=== PATIENT | female | born 1950 | race African-American/Black ===

== ENCOUNTER 2019-04-22 06:15 | Day surgery (SDC) | payer MEDICARE, OTHER ==
--- NOTE | 2019-04-21 13:00 | Opthalmology H&P ---
Ophthalmology H&P H&P Chief Complaint: decreased vision in right eye HPI Vision Affects Ability to: read, focus/use eyes together, manage personal affairs HPI Narrative Blurry vision right eye Exam Visual Acuity: OD 20/200 OS 20/50 Tension: OD 14 OS 12 Eye Exam: normal OU: external exam, palpebral fissure-width, marginal reflex distance, levator function, corneas, anterior chambers, fundus exam; findings: lens - cortical cataracts OU Assessment/Plan Treatment Plan: cataract extraction w/ lens implant Goals of Treatment: improvement of vision, enhance quality of life Attestation Attestation The risks and benefits of the surgery as well as alternative procedures were explained to the patient in detail. Juanito Stephen MD Apr 21, 2019 13:00
--- NOTE | 2019-04-21 13:01 | Pre-Procedure Note/Attestation ---
Pre-Procedure Note/Attestation Complete Prior to Procedure Planned Procedure: right Procedure Narrative: Cataract extraction with intraocular lens implant right eye Indications for Procedure Pre-Operative Diagnosis: cortical senile cataract right eye Attestation I attest that I discussed the nature of the procedure; its benefits; risks and complications; and alternatives (and the risks and benefits of such alternatives ), prior to the procedure, with the patient (or the patient's legal housing management representative). I attest that, if there was a reasonable possibility of needing a blood transfusion, the patient (or the patient's legal housing management representative) was given the [facility] standardized written summary, pursuant to the [place] Blood Safety Act ([place] Health and Safety Code # 1645, as amended). I attest that I re-evaluated the patient just prior to the surgery and that there has been no change in the patient's H&P, except as documented below: Juanito Stephen MD Apr 21, 2019 13:01
[~2019-04-22] VITALS: Ht 160 cm; Wt 113.4 kg
[2019-04-22] VITALS (10 sets, daily range): BP systolic 109–144; BP diastolic 55–76
[~2019-04-22 06:15] MED LIST: ASPIRIN81 MG ORAL; ATORVASTATIN CA20 MG ORAL; FLUTICASONE PRO16 G1 NASAL; HYDRALAZINE HC100 MG ORAL; LORATADINE10 M2 PO; LOSARTAN POTASS50 MG ORAL; MELOXICAM15 MG PO; METOPROLOL TART25 MG ORAL; MONTELUKAST SOD10 MG ORAL; SYMBICORT 16010.2 G1 IH; TRIAMTERENE-HC1 EAC5 ORAL
[2019-04-22] MEDS ORDERED: Midazolam 2mg/2ml Inj ONE (06:16)
[2019-04-22] MEDS ORDERED: fentaNYL 100 mcg/2 mL IV ONE (06:16)
[2019-04-22] MEDS ORDERED: Proparacaine 0.5% Opth Soln 15ml RIGHT EYE ONE (07:00)
[2019-04-22] MEDS ORDERED: Polysporin Opth Oint 3.5gm ONE (07:00)
[2019-04-22] MEDS ORDERED: Pred Forte 1% Opth Susp 1ml ONE (07:00)
[2019-04-22] MEDS ORDERED: Akten 3.5% 1ml Btl RIGHT EYE ONE (07:00)
[2019-04-22] MEDS ORDERED: Pilocarpine 1% Opth 15ml Soln ONE (07:00)
[2019-04-22] MEDS ORDERED: Tetracaine 0.5% Opth 4ml Soln RIGHT EYE ONE (07:00)
[2019-04-22] MEDS: Tobramycin Op Soln 0.3% 5ml RIGHT EYE SCH ×3 (07:10→07:21)
[2019-04-22] MEDS: Phenylephrine 10% Opth Soln 5ml RIGHT EYE SCH ×3 (07:10→07:21)
[2019-04-22] MEDS: Cyclopentolate 1% Opth Sol 2ml RIGHT EYE SCH ×3 (07:10→07:21)
[2019-04-22] MEDS: Tropicamide 1% Opth 15ml Soln RIGHT EYE SCH ×3 (07:10→07:20)
[2019-04-22] MEDS: Diclofenac Sod 0.1% Op Soln RIGHT EYE SCH ×3 (07:10→07:20)
--- NOTE | 2019-04-22 07:55 | Anethesia Preoperative Eval ---
Anesthesia Pre-op PMH/ROS General Date of Evaluation: Apr 22, 2019 Time of Evaluation: 07:53 Anesthesiologist: nancy ASA Score: ASA 3 Mallampati Score Class I : Soft palate, uvula, fauces, pillars visible Class II: Soft palate, uvula, fauces visible Class III: Soft palate, base of uvula visible Class IV: Only hard plate visible Mallampati Classification: Class II Surgeon: aric Diagnosis: cortical cataract right eye Surgical Procedure: cataract extraction w/iol implant right eye Anesthesia History: none Social History: smoking - former smoker Family History: no anesthesia problems Allergies: Coded Allergies: No Known Allergies (Unverified , 04/22/19) Medications: see eMAR Patient NPO?: Yes Past Medical History Cardiovascular: Reports: HTN, other - hypercholesterolemia Musculoskeletal/Integumentary: Reports: OA, other - bilateral hip replacement Anesthesia Pre-op Phys. Exam Physician Exam Last Vital Signs Date Time Temp Pulse Resp B/P (MAP) Pulse Ox O2 Delivery O2 Flow Rate FiO2 04/22/19 07:14 Room Air 04/22/19 07:00 97.0 65 18 126/73 97 Constitutional: NAD Neurologic: CN 2-12 intact Cardiovascular: RRR Respiratory: CTA Gastrointestinal: S/NT/ND Airway Exam Mallampati Score: Class II MO: limited Neck: short TMD: 2fb ROM: limited Anesthesia Pre-op A/P Risk Assessment & Plan Assessment: asa3 Plan: mac Status Change Before Surgery: No Pre-Antibiotics Drug: Oneyda Mariee MD Apr 22, 2019 07:55
[2019-04-22] MEDS ORDERED: Atropine Sulfate 0.4mg/ml inj IVP PRN (08:00)
[2019-04-22] MEDS ORDERED: Midazolam 2mg/2ml Inj IVP PRN (08:00)
[2019-04-22] MEDS ORDERED: fentaNYL 100 mcg/2 mL IV PRN (08:00)
[2019-04-22] MEDS ORDERED: DiphenhydrAMINE 50mg/ml Inj IVP PRN (08:00)
[2019-04-22] MEDS ORDERED: Sterile Water Irrig 1000ml IRRIG ONE (10:30)
[2019-04-22] MEDS ORDERED: LR 1000ml ONE (10:30)
[2019-04-22] MEDS ORDERED: NS Irrig 1000ml ONE (10:30)
[2019-04-22] MEDS ORDERED: EPINEPHrine 1mg/1ml Amp ONE (11:15)
[2019-04-22] MEDS ORDERED: BSS 15ml BTL ONE (11:16)
[2019-04-22] MEDS ORDERED: Povidone-Iodine 5% opth solution ONE (11:16)
[2019-04-22] MEDS ORDERED: Dexamethasone 4mg/ml vial ONE (11:16)
[2019-04-22] MEDS ORDERED: BSS 500ml btl ONE (11:16)
[2019-04-22] MEDS ORDERED: Sodium Hyaluronate 14 mg/ml 0.85ml ONE (11:16)
--- NOTE | 2019-04-22 11:35 | Immediate Post-Op Evaluation ---
Immediate Post-Op Evalulation Immediate Post-Op Evalulation Procedure: cataract extraction w/iol implant right eye Date of Evaluation: Apr 22, 2019 Time of Evaluation: 11:25 IV Fluids: 400ml lr Blood Products: none Estimated Blood Loss: negligible Blood Pressure Systolic: 114 Blood Pressure Diastolic: 55 Pulse Rate: 69 Respiratory Rate: 18 O2 Sat by Pulse Oximetry: 99 Temperature (Fahrenheit): 97.3 Pain Score (1-10): 0 Nausea: No Vomiting: No Complications none Patient Status: awake, reacts, patent Hydration Status: adequate Drug: Oneyda Mariee MD Apr 22, 2019 11:35
--- NOTE | 2019-04-22 11:36 | 48 Hour Post Anesthesia Eval ---
Post Anesthesia Evaluation Procedure: cataract extraction w/iol implant right eye Date of Evaluation: Apr 22, 2019 Time of Evaluation: 11:27 Blood Pressure Systolic: 120 0: 59 Pulse Rate: 71 Respiratory Rate: 18 Temperature (Fahrenheit): 97.3 O2 Sat by Pulse Oximetry: 99 Airway: patent Nausea: No Vomiting: No Pain Intensity: 0 Hydration Status: adequate Cardiopulmonary Status: stable Mental Status/LOC: patient returned to baseline Post-Anesthesia Complications: none Follow-up care needed: N/A Oneyda Salgado MD Apr 22, 2019 11:36
--- NOTE | 2019-04-25 11:42 | Brief Operative Note ---
Immediate Post Operative Note Operative Note Chief Complaint: Blurry vision right eye Pre-op Diagnosis: cortical senile cataract right eye Procedure: Cataract extraction with intraocular lens implant right eye Post-op Diagnosis: Pseudophakia right eye Post-op Diagnosis: same as pre-op Findings: consistent w/pre-op dx studies Surgeon: Juanito Stephen MD Anesthesiologist: Oneyda Cunningham MD Anesthesia: MAC Specimen: none Complications: none Condition: stable Fluids: LR Estimated Blood Loss: none Drains: none Implant(s) used?: Yes - IOL-OD Juanito Stephen MD Apr 25, 2019 11:42
--- NOTE | 2019-04-25 11:54 | Operative Note - PDOC ---
Operative Note Operative Note Date of Operation/Procedure: Apr 22, 2019 Chief Complaint: Blurry vision right eye Pre-op Diagnosis: cortical senile cataract right eye Procedure: Cataract extraction with intraocular lens implant right eye Post-op Diagnosis: Pseudophakia right eye Post-op Diagnosis: same as pre-op Operative Findings: consistent w/pre-op dx studies Surgeon: Juanito Stephen MD Anesthesiologist: Oneyda Cunningham MD Anesthesia: MAC Specimen: none Complications: none Condition: stable Fluids: LR Estimated Blood Loss: none Drains: none Implant(s) used?: Yes - IOL-OD+ Indications for Procedure Cortical senile cataract right eye Description of Procedure This patient has been complaining visually significant cataract in the right eye with the best corrected visual acuity of 20/200 under moderate glare conditions worse. The patient complains of difficulties with glare in performing activities of daily living and wants to manage personal affairs with comfort and accuracy and see well enough to move with safety at home and outdoors. The risks, benefits and alternatives of the procedure were discussed with the patient in the office prior to scheduling surgery. All questions from the patient were answered after the surgical procedure was explained in detail. The risks of the procedure as explained to the patient include, but are not limited to, pain, infection, bleeding, loss of vision, retinal detachment, need for further surgery, loss of lens nucleus, double vision, etc. Alternative procedures were discussed which include, to do nothing or seek a second opinion. Informed consent for this procedure was obtained from the patient. The patient was referred to a primary care physician for a cardiopulmonary clearance prior to surgery, after proper evaluation was done patient was properly scheduled for outpatient surgery. The patient was brought to the operating room where the anesthesiologist established I.V. lines and cardiac monitoring leads. Mild intravenous sedation was administered. The patient was then prepared with a 5% solution of povidone -iodine to the conjunctival fornix and lashes, and a 5% solution of povidone- iodine to the lids and periorbital skin. The patient was then draped in the usual sterile fashion. A lid speculum was then placed in the operative eye. A keratome blade was then used to create a biplanar incision into the anterior chamber. Viscoelastics was then instilled into the anterior chamber. A 3-mm single pass clear corneal incision was made just anterior to the vascular arcade of the temporal limbus using a keratome. Anterior capsulorrhexis was created. The nucleus was hydrodissected and hydrodelineated, and was freely movable in the capsular bag. The lens nucleus was then phacoemulsified. Following the deep groove formation , the lens was split bimanually and the resultant quadrants and epicortex removed under vacuum burst-mode phacoemulsification. Peripheral cortex was removed with the irrigation and aspiration handpiece. The capsular bag was expanded with viscoelastic. The implant was check for proper power and sized. The implant was inspected under the microscope and found to be free of defects. The implant was inserted into the cartridge system under viscoelastic and placed in the capsular bag. The trailing haptic was positioned with the cartridge system. Viscoelastics was removed from the anterior chamber using the irrigation and aspiration unit. The corneal wound was then tested for leaks and none were found. The lid speculum were then removed. Sponge and needle counts were correct. An eye patch and shield were placed over the operative eye. The patient was taken to the recovery room in stable condition. There were no complications. The patient tolerated the procedure well. The patient was then transferred to the ambulatory surgery unit in stable and satisfactory condition , was given detailed written instructions and asked to follow up in the office the next day. Juanito Stephen MD Apr 25, 2019 11:54
== END 2019-04-22 12:35 | disposition home or self-care (01) ==
LOC: SUR 06:15
DX: H25.011 Cortical age-related cataract, right eye (principal); Z79.82 Long term (current) use of aspirin; Z79.899 Other long term (current) drug therapy; E78.00 Pure hypercholesterolemia, unspecified; I10 Essential (primary) hypertension; M19.90 Unspecified osteoarthritis, unspecified site; Z96.643 Presence of artificial hip joint, bilateral; Z87.891 Personal history of nicotine dependence
CPT/HCPCS: 66984; J0171; J1100; J2250; J3010; V2632; 94003; 94150

== ENCOUNTER 2019-07-11 07:00 | Day surgery (SDC) | payer MEDICARE, OTHER ==
--- NOTE | 2019-06-20 15:51 | Pre-Procedure Note/Attestation ---
Pre-Procedure Note/Attestation Complete Prior to Procedure Planned Procedure: left Procedure Narrative: Cataract Extraction with intraocular lens implant left eye Indications for Procedure Pre-Operative Diagnosis: Cortical cataract Attestation I attest that I discussed the nature of the procedure; its benefits; risks and complications; and alternatives (and the risks and benefits of such alternatives ), prior to the procedure, with the patient (or the patient's legal training representative). I attest that, if there was a reasonable possibility of needing a blood transfusion, the patient (or the patient's legal training representative) was given the [facility] standardized written summary, pursuant to the Bryce Rj Blood Safety Act ([place] Health and Safety Code # 1645, as amended). I attest that I re-evaluated the patient just prior to the surgery and that there has been no change in the patient's H&P, except as documented below: Juanito Stephen MD Jun 20, 2019 15:51
--- NOTE | 2019-07-08 10:17 | Opthalmology H&P ---
Ophthalmology H&P H&P Chief Complaint: decreased vision in left eye HPI Vision Affects Ability to: read, manage personal affairs HPI Narrative Blurry Vision Exam Visual Acuity: OD 20/40 OS 20/125 Tension: OD 12 OS 12 Eye Exam: normal OU: external exam, palpebral fissure-width, marginal reflex distance, levator function, corneas, anterior chambers, lens - NS/CC Cataract OS, fundus exam; findings: lens - NS/CC Cataract OS Assessment/Plan Treatment Plan: cataract extraction w/ lens implant Goals of Treatment: improvement of vision, enhance quality of life Attestation Attestation The risks and benefits of the surgery as well as alternative procedures were explained to the patient in detail. Juanito Stephen MD Jul 08, 2019 10:17
--- NOTE | 2019-07-08 10:19 | Pre-Procedure Note/Attestation ---
Pre-Procedure Note/Attestation Complete Prior to Procedure Planned Procedure: left Procedure Narrative: Cataract extraction with intraocular lens implant left eye Indications for Procedure Pre-Operative Diagnosis: Cortical/Nuclear sclerotic cataract left eye Attestation I attest that I discussed the nature of the procedure; its benefits; risks and complications; and alternatives (and the risks and benefits of such alternatives ), prior to the procedure, with the patient (or the patient's legal territory sales representative). I attest that, if there was a reasonable possibility of needing a blood transfusion, the patient (or the patient's legal territory sales representative) was given the [facility] standardized written summary, pursuant to the [place] Blood Safety Act ([place] Health and Safety Code # 1645, as amended). I attest that I re-evaluated the patient just prior to the surgery and that there has been no change in the patient's H&P, except as documented below: Juanito Stephen MD Jul 08, 2019 10:19
[2019-07-11] VITALS (8 sets, daily range): BP systolic 116–153; BP diastolic 53–74
[~2019-07-11] VITALS: Ht 160 cm; Wt 108.9 kg
[~2019-07-11 07:00] MED LIST changes: +Akten 3.5% 1ml Btl LEFT EYE ONE; +Cyclopentolate 1% Opth Sol 2ml LEFT EYE SCH; +Diclofenac Sod 0.1% Op Soln LEFT EYE SCH; +FUROSEMIDE40 MG ORAL; +POTASSIUM CHLO10 ME3 ORAL; +Phenylephrine 10% Opth Soln 5ml LEFT EYE SCH; +Proparacaine 0.5% Opth Soln 15ml LEFT EYE ONE; +TRIAMTERENE-HC1 EAC7 ORAL; +Tetracaine 0.5% Opth 4ml Soln LEFT EYE ONE; +Tobramycin Op Soln 0.3% 5ml LEFT EYE SCH; +Tropicamide 1% Opth 15ml Soln LEFT EYE SCH
[2019-07-11] MEDS: Tropicamide 1% Opth 15ml Soln LEFT EYE SCH ×3 (09:03→09:20)
[2019-07-11] MEDS: Cyclopentolate 1% Opth Sol 2ml LEFT EYE SCH ×3 (09:03→09:20)
[2019-07-11] MEDS: Phenylephrine 10% Opth Soln 5ml LEFT EYE SCH ×3 (09:03→09:20)
[2019-07-11] MEDS ORDERED: LR 1000ml 1,000 ML IVLG SCH ×2 (09:23→10:04)
--- NOTE | 2019-07-11 09:23 | Anethesia Preoperative Eval ---
Anesthesia Pre-op PMH/ROS General Date of Evaluation: Jul 11, 2019 Anesthesiologist: Sergio ASA Score: ASA 2 Mallampati Score Class I : Soft palate, uvula, fauces, pillars visible Class II: Soft palate, uvula, fauces visible Class III: Soft palate, base of uvula visible Class IV: Only hard plate visible Mallampati Classification: Class II Surgeon: Hailee Diagnosis: left catarct Surgical Procedure: left cataract extraction with iol Anesthesia History: none Family History: no anesthesia problems Allergies: Coded Allergies: No Known Allergies (Unverified , 07/11/19) Medications: see eMAR Patient NPO?: Yes NPO Date: Jul 10, 2019 NPO Time: 22:00 Past Medical History Cardiovascular: Reports: HTN, other - HLD; Denies: CAD, OR, valve dz, arrhythmia Pulmonary: Denies: asthma, COPD, CARLA, other Gastrointestinal/Genitourinary: Reports: GERD; Denies: CRI, ESRD, other Neurologic/Psychiatric: Denies: dementia, CVA, depression/anxiety, TIA, other Endocrine: Denies: DM, hypothyroidism, steroids, other HEENT: Denies: cataract (L), cataract (R), glaucoma, [place] (L), [place] (R), other Hematology/Immune: Denies: anemia, DVT, bleeding disorder, other Musculoskeletal/Integumentary: Reports: OA; Denies: RA, DJD, DDD, edema, other Other: obesity PSxH Narrative: right cataract, bilateral thr Anesthesia Pre-op Phys. Exam Physician Exam Last Vital Signs Date Time Temp Pulse Resp B/P (MAP) Pulse Ox O2 Delivery O2 Flow Rate FiO2 07/11/19 09:06 Room Air 07/11/19 09:05 98.0 58 18 116/53 96 Constitutional: NAD Cardiovascular: RRR Respiratory: CTA Airway Exam Mallampati Score: Class II MO: limited ROM: limited Anesthesia Pre-op A/P Labs see chart Studies Pre-op Studies: EKG - sr Risk Assessment & Plan Assessment: ASA II Plan: MAC Status Change Before Surgery: No Pre-Antibiotics Drug: n/a Maeve Cole MD Jul 11, 2019 09:23
[2019-07-11] MEDS ORDERED: DiphenhydrAMINE 50mg/ml Inj IVP PRN ×2 (09:30→10:15)
[2019-07-11] MEDS ORDERED: EPINEPHrine 1mg/1ml Amp ONE (09:36)
[2019-07-11] MEDS ORDERED: Polysporin Opth Oint 3.5gm ONE (09:36)
[2019-07-11] MEDS ORDERED: Sodium Hyaluronate 14 mg/ml 0.85ml ONE (09:37)
[2019-07-11] MEDS ORDERED: BSS 500ml btl ONE (09:37)
[2019-07-11] MEDS ORDERED: BSS 15ml BTL ONE (09:37)
[2019-07-11] MEDS ORDERED: Povidone-Iodine 5% opth solution ONE (09:37)
--- NOTE | 2019-07-11 10:07 | Anethesia Preoperative Eval ---
Anesthesia Pre-op PMH/ROS General Date of Evaluation: Jul 11, 2019 Time of Evaluation: 10:24 Anesthesiologist: Vandana ASA Score: ASA 3 Mallampati Score Class I : Soft palate, uvula, fauces, pillars visible Class II: Soft palate, uvula, fauces visible Class III: Soft palate, base of uvula visible Class IV: Only hard plate visible Mallampati Classification: Class II Surgeon: Hailee Diagnosis: Cataract OS Surgical Procedure: Cat EXt IOL OS Anesthesia History: none Family History: no anesthesia problems Allergies: Coded Allergies: No Known Allergies (Unverified , 07/11/19) Medications: see eMAR Patient NPO?: Yes NPO Date: Jul 10, 2019 NPO Time: 22:00 Past Medical History Cardiovascular: Reports: HTN, other - HL HEENT: Reports: cataract (L), cataract (R) Musculoskeletal/Integumentary: Reports: OA PSxH Narrative: B THR Anesthesia Pre-op Phys. Exam Physician Exam Last Vital Signs Date Time Temp Pulse Resp B/P (MAP) Pulse Ox O2 Delivery O2 Flow Rate FiO2 07/11/19 09:06 Room Air 07/11/19 09:05 98.0 58 18 116/53 96 Constitutional: NAD Neurologic: CN 2-12 intact Cardiovascular: RRR Respiratory: CTA Gastrointestinal: S/NT/ND Airway Exam Mallampati Score: Class II MO: limited ROM: limited Teeth: missing, intact Anesthesia Pre-op A/P Risk Assessment & Plan Assessment: ASA 3 Plan: TIVA Status Change Before Surgery: No Fortino Ross MD Jul 11, 2019 10:07
--- NOTE | 2019-07-11 10:08 | Immediate Post-Op Evaluation ---
Immediate Post-Op Evalulation Immediate Post-Op Evalulation Procedure: Cat Ext IOL OS Date of Evaluation: Jul 11, 2019 Time of Evaluation: 11:09 IV Fluids: 400 LR Blood Products: 0 Estimated Blood Loss: 1 Urinary Output: 0 Blood Pressure Systolic: 153 Blood Pressure Diastolic: 68 Pulse Rate: 59 Respiratory Rate: 16 O2 Sat by Pulse Oximetry: 100 Temperature (Fahrenheit): 97.9 Pain Score (1-10): 1 Nausea: No Vomiting: No Complications 0 Patient Status: awake, reacts, patent, none Hydration Status: adequate Fortino Ross MD Jul 11, 2019 10:08
--- NOTE | 2019-07-11 10:09 | 48 Hour Post Anesthesia Eval ---
Post Anesthesia Evaluation Procedure: Cat Ext IOL OS Date of Evaluation: Jul 11, 2019 Time of Evaluation: 13:12 Blood Pressure Systolic: 156 0: 71 Pulse Rate: 63 Respiratory Rate: 18 Temperature (Fahrenheit): 97.9 O2 Sat by Pulse Oximetry: 98 Airway: patent Nausea: No Vomiting: No Pain Intensity: 1 Hydration Status: adequate Cardiopulmonary Status: Stable Mental Status/LOC: patient returned to baseline Follow-up Care/Observations: 0 Post-Anesthesia Complications: 0 Follow-up care needed: ready to discharge Fortino Ross MD Jul 11, 2019 10:09
[2019-07-11] MEDS ORDERED: LORazepam Inj 2mg/ml 1ml IV PRN (10:15)
[2019-07-11] MEDS ORDERED: fentaNYL 100 mcg/2 mL IV PRN (10:15)
[2019-07-11] MEDS ORDERED: Hydromorphone 0.5mg/0.5ml inj IVP PRN (10:15)
[2019-07-11] MEDS ORDERED: Atropine Sulfate 0.4mg/ml inj IVP PRN (10:15)
[2019-07-11] MEDS ORDERED: HYDROcodone/Acetamin 7.5/325 tab ORAL PRN (10:15)
[2019-07-11] MEDS ORDERED: HYDROcodone/Acetamin 5/325 tab ORAL PRN (10:15)
[2019-07-11] MEDS ORDERED: Ketorolac 30mg Inj IV PRN ×2 (10:15)
[2019-07-11] MEDS ORDERED: Midazolam 2mg/2ml Inj IVP PRN (10:15)
[2019-07-11] MEDS ORDERED: Metoclopramide 10mg/2ml Inj IVP PRN (10:15)
[2019-07-11] MEDS ORDERED: oxyCODONE HCL/Acetaminophen 5/325mg ORAL PRN (10:15)
[2019-07-11] MEDS ORDERED: Meperidine 50mg/ml Inj(FOR RIGORS ONLY) IVP PRN (10:15)
[2019-07-11] MEDS ORDERED: Labetalol 5mg/ml 20ml vial IV PRN (10:15)
[2019-07-11] MEDS ORDERED: NS Irrig 1000ml ONE (10:30)
[2019-07-11] MEDS ORDERED: Lidocaine 1% MPF 10mg/ml 5ml ONE ×2 (10:30→10:35)
[2019-07-11] MEDS ORDERED: Sterile Water Irrig 1000ml IRRIG ONE (10:30)
[2019-07-11] MEDS ORDERED: Propofol 200mg/20ml IV ONE (10:30)
[2019-07-11] MEDS ORDERED: LR 1000ml ONE (10:30)
[2019-07-11] MEDS ORDERED: acetaZOLAMIDE 500mg Inj ONE (10:32)
--- NOTE | 2019-07-12 14:12 | Brief Operative Note ---
Immediate Post Operative Note Operative Note Chief Complaint: Blurry vision left eye Pre-op Diagnosis: Cortical/Nuclear sclerotic cataract left eye Procedure: Cataract extraction with IOL implant left eye Post-op Diagnosis: Pseudo left eye Findings: consistent w/pre-op dx studies Surgeon: Juanito Stephen MD Anesthesiologist: Fortino Stone MD Anesthesia: MAC Specimen: none Complications: none Condition: stable Fluids: LR Estimated Blood Loss: none Drains: none Implant(s) used?: Yes - IOL OS Juanito Stephen MD Jul 12, 2019 14:12
--- NOTE | 2019-07-12 14:17 | Operative Note - PDOC ---
Operative Note Operative Note Date of Operation/Procedure: Jul 11, 2019 Chief Complaint: Blurry vision left eye Pre-op Diagnosis: Cortical/Nuclear sclerotic cataract left eye Procedure: Cataract extraction with IOL implant left eye Post-op Diagnosis: Pseudo left eye Operative Findings: consistent w/pre-op dx studies Surgeon: Juanito Stephen MD Anesthesiologist: Fortino Stone MD Anesthesia: MAC Specimen: none Complications: none Condition: stable Fluids: LR Estimated Blood Loss: none Drains: none Implant(s) used?: Yes - IOL OS Indications for Procedure Cortical/Nuclear Sclerotic Cataract left eye Description of Procedure This patient has been complaining visually significant cataract in the left eye with the best corrected visual acuity of 20/100 under moderate glare conditions worse. The patient complains of difficulties with glare in performing activities of daily living and wants to manage personal affairs with comfort and accuracy and see well enough to move with safety at home and outdoors. The risks, benefits and alternatives of the procedure were discussed with the patient in the office prior to scheduling surgery. All questions from the patient were answered after the surgical procedure was explained in detail. The risks of the procedure as explained to the patient include, but are not limited to, pain, infection, bleeding, loss of vision, retinal detachment, need for further surgery, loss of lens nucleus, double vision, etc. Alternative procedures were discussed which include, to do nothing or seek a second opinion. Informed consent for this procedure was obtained from the patient. The patient was referred to a primary care physician for a cardiopulmonary clearance prior to surgery, after proper evaluation was done patient was properly scheduled for outpatient surgery. The patient was brought to the operating room where the anesthesiologist established I.V. lines and cardiac monitoring leads. Mild intravenous sedation was administered. The patient was then prepared with a 5% solution of povidone -iodine to the conjunctival fornix and lashes, and a 5% solution of povidone- iodine to the lids and periorbital skin. The patient was then draped in the usual sterile fashion. A lid speculum was then placed in the operative eye. A keratome blade was then used to create a biplanar incision into the anterior chamber. Viscoelastics was then instilled into the anterior chamber. A capsulorrhexis was then fashioned with an utrata forceps followed by hydrodissection and hydro delineation of the lens nucleus. Paracentesis incision was made at 3 o'clock with sharp blade. The phacoemulsification unit, after being properly adjusted and tested, was then used to emulsify the nucleus followed by aspiration and irrigation of residual cortical material. [place] was then instilled into the anterior chamber. The corneal wound was then enlarged to the size of the optic with the adelaida keratome blade. The intraocular lens was then inspected for right power and size and thought to be satisfactory. Then the lens was gently placed in the capsular bag. Positioning within the capsular bag was confirmed by direct visualization. Optic centration was accomplished with a [place] hook. Viscoelastics was removed from the anterior chamber using the irrigation and aspiration unit. The corneal wound was then tested for leaks and none were found. The lid speculum were then removed. Sponge and needle counts were correct. An eye patch and shield were placed over the operative eye. The patient was taken to the recovery room in stable condition. There were no complications. The patient tolerated the procedure well. The patient was then transferred to the ambulatory surgery unit in stable and satisfactory condition , was given detailed written instructions and asked to follow up in the office the next day. Juanito Stephen MD Jul 12, 2019 14:17
== END 2019-07-11 12:15 | disposition home or self-care (01) ==
LOC: SUR 07:00
DX: H25.012 Cortical age-related cataract, left eye (principal); H25.12 Age-related nuclear cataract, left eye; I10 Essential (primary) hypertension; M19.90 Unspecified osteoarthritis, unspecified site; Z96.643 Presence of artificial hip joint, bilateral
CPT/HCPCS: 66984; J0171; J1120; J2704; J3370; V2632; 94003; 94150